=== PATIENT | male | born 1940 | race Caucasian/White ===

== ENCOUNTER → 2016-10-17 | Outpatient (CLI) | payer MEDICARE ==
[~2016-10-17] MED LIST: COUMADIN 7.5MG7.5 MG PO; FLOMAX0.4 MG PO; LOVENOX SY60 MG/0.6 SQ; PROSCAR5 MG PO
== END ==
LOC: OPSV 10:17 → CT 13:30
DX: C49.6 Malignant neoplasm of connective and soft tissue of trunk, unspecified (principal); R22.2 Localized swelling, mass and lump, trunk; K76.9 Liver disease, unspecified; K43.9 Ventral hernia without obstruction or gangrene; R91.8 Other nonspecific abnormal finding of lung field; E86.0 Dehydration
CPT/HCPCS: 71260; 74160; 96360; 96361; J7030; J7050; Q9965

== ENCOUNTER → 2016-11-18 | Outpatient (CLI) | payer MEDICARE ==
[2016-11-18 10:16] LABS: RED BLOOD COUNT 4.24 M/UL (4.20-5.50); WHITE BLOOD COUNT 5.3 K/UL (4.5-11.0)
[2016-11-18 10:55] LABS: BUN/CREATININE RATIO 20 (0-10)
== END ==
LOC: CT 09:30
PROVIDERS: Internal Medicine Hematology & Oncology
DX: R91.1 Solitary pulmonary nodule (principal); C49.6 Malignant neoplasm of connective and soft tissue of trunk, unspecified; R22.2 Localized swelling, mass and lump, trunk; Z87.891 Personal history of nicotine dependence
CPT/HCPCS: 36415; 71250; 80053; 83735; 85025; 85610; 85730

== ENCOUNTER → 2021-03-11 | Outpatient (CLI) | payer MEDICARE ==
[~2021-03-11] MED LIST changes: +VITAMIN D1000 UNIT PO
== END ==
LOC: CT 07:43
DX: C49.6 Malignant neoplasm of connective and soft tissue of trunk, unspecified (principal); Z79.01 Long term (current) use of anticoagulants
CPT/HCPCS: 71260; Q9967

== ENCOUNTER → 2021-03-15 | Outpatient (CLI) | payer MEDICARE | LOC: US 08:44 | DX: C49.5 Malignant neoplasm of connective and soft tissue of pelvis (principal); K80.20 Calculus of gallbladder without cholecystitis without obstruction; R93.89 Abnormal findings on diagnostic imaging of other specified body structures; Z71.2 Person consulting for explanation of examination or test findings; Z79.01 Long term (current) use of anticoagulants; N13.30 Unspecified hydronephrosis | CPT/HCPCS: 76705 ==